=== PATIENT | male | born 1945 | race Caucasian/White ===

== ENCOUNTER 2020-06-21 02:20 | Inpatient (IN) | payer MEDICARE, OTHER ==
[~2020-06-21] VITALS: Ht 195.6 cm; Wt 100.0 kg
[2020-06-21] MEDS ORDERED: CefTRIAXone 2gm/D5W 50ml BAG 50 ML IV ONE (03:15)
[2020-06-21] MEDS ORDERED: normal saline 1000ML IV soln IV ONE (03:15)
[2020-06-21 03:24] LABS: BASOPHILS % (AUTO) 0.1 % (0-1); EOSINOPHILS % (AUTO) 0 % (0-6); HEMATOCRIT 38.5 % (42.0-52.0); HEMOGLOBIN 13.1 g/dl (14.0-17.9); LYMPHOCYTES # (AUTO) 0.7 X10'3 (1.1-4.8); LYMPHOCYTES % (AUTO) 4.4 % (21-51); MEAN CORPUSCULAR HEMOGLOBIN 29.9 PG (27.0-31.0); MEAN CORPUSCULAR VOLUME 87.9 FL (78-98); MEAN PLATELET VOLUME 10.5 FL (7.4-10.4); MONOCYTES % (AUTO) 11.6 % (2-12); NEUTROPHILS # (AUTO) 14.2 X10'3 (1.8-7.7); NEUTROPHILS % (AUTO) 83.9 % (42-75); PLATELET COUNT 189 X10'3 (140-440); RED BLOOD COUNT 4.38 X10'6 (4.70-6.10); RED CELL DISTRIBUTION WIDTH 13.6 % (11.5-14.5); WHITE BLOOD COUNT 16.9 X10'3 (4.5-11.0)
[2020-06-21] MEDS ORDERED: acetaminophen 325mg tablet PO ONE (03:25)
[2020-06-21 03:34] LABS: ALANINE AMINOTRANSFERASE 22 U/L (12-78); ALBUMIN 2.4 G/DL (3.4-5.0); ALBUMIN/GLOBULIN RATIO 0.5 (1.1-1.5); ALKALINE PHOSPHATASE 54 IU/L (46-116); ANION GAP 12 (8-16); ASPARTATE AMINO TRANSFERASE 28 U/L (10-37); BILIRUBIN,TOTAL 1.6 MG/DL (0.1-1.0); BLOOD UREA NITROGEN 31 MG/DL (7-18); BUN/CREATININE RATIO 17.6 (5.4-32.0); CHLORIDE 95 MMOL/L (99-107); CREATININE 1.76 MG/DL (0.60-1.10); GLUCOSE 232 MG/DL (70-104); MAGNESIUM 2.1 MG/DL (1.5-2.4); POTASSIUM 3.6 MMOL/L (3.5-5.1); SODIUM 136 MMOL/L (135-145); TOTAL CARBON DIOXIDE 29.3 MMOL/L (24-32); TOTAL PROTEIN 6.8 G/DL (6.4-8.2); eGFR 38 ML/MIN
[2020-06-21] MEDS ORDERED: bacitracin 15gm ointment TP ONE (04:20)
[2020-06-21] MEDS ORDERED: TETanus/Pertussis (Acell)/Diphther VAC/PF (Tdap-Adult) 0.5ml syringe IMVAC ONE (04:20)
[2020-06-21 04:34] LABS: LACTATE DEHYDROGENASE 194 U/L (85-227)
[2020-06-21] MEDS ORDERED: potassium Cl 40MEQ/1/2NS 520ml 520 ML IV PRN ×2 (04:35)
[2020-06-21] MEDS ORDERED: MESSAGE TO PHARMACY PO ONE (04:35)
[2020-06-21] MEDS ORDERED: magnesium 2GM in 50ml NS 50 ML IV PRN (04:35)
[2020-06-21] MEDS ORDERED: ondansetron/PF 4mg/2ml inj IV PRN (04:35)
[2020-06-21] MEDS ORDERED: glucagon, human recombinant 1mg kit SUBCUT PRN (04:35)
[2020-06-21] MEDS ORDERED: dextrose 50%-water 50ml dispensing syringe IV PRN ×2 (04:35)
[2020-06-21] MEDS ORDERED: dextrose ORAL solution 15 GM/59 ML bottle PO PRN ×2 (04:35)
[2020-06-21] MEDS ORDERED: potassium Cl 20 mEq SR tablet PO PRN (04:35)
[2020-06-21] MEDS ORDERED: acetaminophen 325mg tablet PO PRN (04:35)
[2020-06-21] MEDS ORDERED: magnesium Cl slow-release 64mg tablet PO PRN (04:35)
[2020-06-21] MEDS ORDERED: magnesium 4gm in 100ml NS 100 ML IV PRN (04:35)
[2020-06-21] MEDS ORDERED: magnesium hydroxide 30ml (MOM) UD suspension PO PRN (04:35)
[2020-06-21] MEDS ORDERED: mag hydrox/Alum hydrox/simeth 30ml oral suspension PO PRN (04:35)
--- NOTE | 2020-06-21 04:49 | NUR ---
YASMNAY ESPINOZA AWARE OF PT TEMP OF 102.5, 1 HR POST TYLENOL ADMIN. NO NEW ORDERS
[2020-06-21 04:53] LABS: HEMOGLOBIN A1C 7.9 % (4.5-6.2)
[2020-06-21 05:10] LABS: GLUCOSE, URINE 250 mg/dl (Neg); KETONES,URINE 15 mg/dl (Neg); LEUKOCYTE ESTERASE ,URINE NEGATIVE (Neg); NITRITES, URINE NEGATIVE (Neg); OCCULT BLOOD,URINE NEGATIVE (Neg); PH,URINE 6.5 (4.8-8.0); PROTEIN,URINE 100 mg/dl (Neg); UROBILINOGEN,URINE 0.2 E.U/dL (0.2-1.0)
[2020-06-21 05:36] LABS: CLARITY,URINE SLIGHTLY CLOUDY (Clear); COLOR,URINE DARK YELLOW (Yellow); UA COLLECTION TYPE STRAIGHT CATH
[2020-06-21 05:37] LABS: MUCUS STRANDS FEW /LPF (Neg); RBC,URINE 0-2 /HPF (0-2); SQUAMOUS EPITHELIAL CELL,UR FEW /LPF (FEW); TRANSITIONAL EPI CELLS,URINE MODERATE /HPF; WBC,URINE 0-4 /HPF (0-4)
[2020-06-21 05:38] LABS: BACTERIA,URINE FEW /HPF (Neg); WBC CLUMPS,URINE MODERATE /HPF (NEGATIVE)
[2020-06-21] MEDS: normal saline 1000ml 1,000 ML IV SCH ×3 (05:58→18:49)
[2020-06-21] MEDS: vancomycin/NS 1 GM ADD-VANTAGE 250 ML IV SCH (05:58)
[2020-06-21 06:20] LABS: PLATELET ESTIMATE NORMAL; TOTAL CELLS COUNTED 100
[2020-06-21 06:23] LABS: TOXIC GRANULATION 1+
--- NOTE | 2020-06-21 06:59 | NUR ---
Pt currently resting with eyes closed, effortless respirations observed.
[2020-06-21] MEDS: K and/or MAG REPLACEMENT MC SCH ×2 (07:18→20:00)
[2020-06-21] MEDS: insulin Lispro (HumaLOG) vial - multi-dose SQ SCH ×4 (09:26→21:46)
--- NOTE | 2020-06-21 10:50 | NUR ---
Wound care POC. Arrived at bedside for assessment. Pt alert and reports no pain at this time. Pt reports that the wound began due to rubbing on a brace he was wearing for his "weak ankle." He reports that he is diabetic and his sugars run in the 250s. Assessed the wound to his left posterior ankle. Foul odor present in the atmosphere of necrotic slough in the majority of the wound bed. Undermining noted from 11-2 of 3.1 cm. Wound measres 3.2x5x1.5. Unable to visualize underlying structures due to necrotic tissue in the wound bed. Culture obtained of undermined area. Cleansed with wound cleanser, rinsed with saline, applied therahoney to wound bed and packed with silver alginate, covered with large optifoam. Pt will likely need surgical consult for debridement of the wound. Will follow up when pt is transferred to the floor.
[2020-06-21] MEDS ORDERED: INSULIN (11:00)
--- NOTE | 2020-06-21 12:46 | NUR ---
Report attempted, JER Winston to call back.
--- NOTE | 2020-06-21 12:59 | NUR ---
received report from JER Castillo. awaiting patient arrival.
[2020-06-21 14:29] VITALS: BP 136/62
--- NOTE | 2020-06-21 17:29 | NUR ---
PAGER ID: [phone] MESSAGE: Emilie LUZ [id number]: he is refusing to DC the robbin pearl [phone]
[2020-06-21 18:00] VITALS: BP 134/54
--- NOTE | 2020-06-21 18:01 | NUR ---
pt insisting that he be covered with insulin before finishing his dinner tray. according to the protocol i gave the patient 5 units of humalog for a 244 blood glucose. will pass on to the NOC shift the need to cover his carb intake separately.
--- NOTE | 2020-06-21 18:15 | NUR ---
I have received report from JER Jenkins and had the opportunity to ask questions and assume patient care. Student, Hernando GRIFFIN is also assuming care of patient
--- NOTE | 2020-06-21 18:20 | NUR ---
Problems reprioritized. Patient report given, questions answered & plan of care reviewed with JER ALMEIDA.
--- NOTE | 2020-06-21 18:30 | NUR ---
Patient in room ORTHO 4015. I have received report from Magui and had the opportunity to ask questions and assume patient care.
[2020-06-21] MEDS: lactobacillus rhamnosus 10,000 MMU CELLS/CAPSULE PO SCH (19:39)
[2020-06-21] MEDS: heparin, porcine 5000 units/ml vial SQ SCH (19:42)
[2020-06-21] MEDS: insulin glargine (Lantus) pen - multi-dose SQ SCH (21:43)
[2020-06-21 22:00] VITALS: BP 133/60
[2020-06-21] MEDS: acetaminophen 325mg tablet PO PRN (22:21)
[2020-06-22] MEDS: vancomycin/NS 1 GM ADD-VANTAGE 250 ML IV SCH (04:54)
[2020-06-22] MEDS: normal saline 1000ml 1,000 ML IV SCH ×2 (04:58→20:36)
--- NOTE | 2020-06-22 06:17 | NUR ---
I agree with JER Leon new hires med pass, documention, assesment, and report. Report was given to JER Isaacs
--- NOTE | 2020-06-22 06:19 | NUR ---
Problems reprioritized. Patient report given, questions answered & plan of care reviewed with matthew. Edward RANDLE
--- NOTE | 2020-06-22 06:52 | NUR ---
Patient in room ORTHO 4012. I have received report from Efrain RANDLE and had the opportunity to ask questions and assume patient care.
[2020-06-22 06:56] LABS: BASOPHILS % (AUTO) 0.2 % (0-1); EOSINOPHILS % (AUTO) 0.1 % (0-6); HEMATOCRIT 36.3 % (42.0-52.0); HEMOGLOBIN 12.2 g/dl (14.0-17.9); LYMPHOCYTES # (AUTO) 0.6 X10'3 (1.1-4.8); MEAN CORPUSCULAR HGB CONC 33.6 g/dL (33.0-36.5); MEAN CORPUSCULAR VOLUME 89.2 FL (78-98); MEAN PLATELET VOLUME 10.6 FL (7.4-10.4); MONOCYTES # (AUTO) 1.1 X10'3 (0-0.9); MONOCYTES % (AUTO) 9.3 % (2-12); NEUTROPHILS # (AUTO) 10.4 X10'3 (1.8-7.7); NEUTROPHILS % (AUTO) 85.4 % (42-75); PLATELET COUNT 142 X10'3 (140-440); RED BLOOD COUNT 4.07 X10'6 (4.70-6.10); RED CELL DISTRIBUTION WIDTH 14.3 % (11.5-14.5); WHITE BLOOD COUNT 12.2 X10'3 (4.5-11.0)
[2020-06-22 06:58] VITALS: BP 135/58
[2020-06-22 07:10] LABS: ALANINE AMINOTRANSFERASE 24 U/L (12-78); ALBUMIN/GLOBULIN RATIO 0.5 (1.1-1.5); ALKALINE PHOSPHATASE 50 IU/L (46-116); ANION GAP 11 (8-16); ASPARTATE AMINO TRANSFERASE 32 U/L (10-37); BILIRUBIN,TOTAL 0.9 MG/DL (0.1-1.0); BLOOD UREA NITROGEN 25 MG/DL (7-18); BUN/CREATININE RATIO 19.8 (5.4-32.0); CALCIUM 7.5 MG/DL (8.5-10.1); CHLORIDE 96 MMOL/L (99-107); CHOL/HDL RATIO 7.5 (0.00-4.99); CHOLESTEROL 105 MG/DL (0-200); CREATININE 1.26 MG/DL (0.60-1.10); GLUCOSE 245 MG/DL (70-104); HDL CHOLESTEROL 14 MG/DL (35-60); LDL CHOLESTEROL 63 MG/DL (50-100); MAGNESIUM 2.4 MG/DL (1.5-2.4); POTASSIUM 3.5 MMOL/L (3.5-5.1); SODIUM 135 MMOL/L (135-145); TOTAL CARBON DIOXIDE 27.7 MMOL/L (24-32); TOTAL PROTEIN 6.3 G/DL (6.4-8.2); TRIGLYCERIDES 115 MG/DL (20-135); eGFR 56 ML/MIN
[2020-06-22 07:51] LABS: PLATELET ESTIMATE DECREASED; TOTAL CELLS COUNTED 100
[2020-06-22] MEDS: K and/or MAG REPLACEMENT MC SCH ×2 (08:00→20:00)
[2020-06-22] MEDS: insulin Lispro (HumaLOG) vial - multi-dose SQ SCH ×4 (09:09→21:15)
[2020-06-22] MEDS: CefTRIAXone/D5W-Rocephin 1gm 50 ML IV SCH (09:10)
[2020-06-22] MEDS: lactobacillus rhamnosus 10,000 MMU CELLS/CAPSULE PO SCH ×2 (09:10→19:15)
[2020-06-22] MEDS: heparin, porcine 5000 units/ml vial SQ SCH ×2 (09:11→19:14)
[2020-06-22 10:00] VITALS: BP 138/69
--- NOTE | 2020-06-22 14:31 | NUR ---
DM consult: Noted A1c 7.9. Pt admitted for worsening ALOC and UTI. Pt still A/Ox3. Pt would benefit from DM education this admit once more alert and oriented. Will continue to follow. Addendum: 06/22/20 at 1431 by Macy TANG INJECTION MOULDING MACHINE OPERATOR RD Amended: Links added. Addendum: 06/22/20 at [address] I have reviewed and agree with note by seo intern. Alexa Rothman RD
[2020-06-22] MEDS ORDERED: nitroGLYCERIN 0.4mg SUBLingual tab SL PRN (15:35)
[2020-06-22] MEDS ORDERED: aminophylline 250mg/10ml inj. IV PRN (15:35)
[2020-06-22] MEDS ORDERED: regadenoson 0.4mg/5ml syringe IV PRN (15:35)
[2020-06-22] MEDS ORDERED: metoprolol tartrate 1mg/ml inj IV PRN (15:35)
[2020-06-22] MEDS ORDERED: iohexol 350 MG/ML 50ML vial IV ONE (16:28)
[2020-06-22] MEDS ORDERED: iohexol 350MG/ML 100ml bottle IV ONE (16:28)
--- NOTE | 2020-06-22 18:34 | NUR ---
Problems reprioritized. Patient report given, questions answered & plan of care reviewed with Efrain RANDLE.
[2020-06-22] MEDS: Dakins solution (1/4 strength) 473ml solution TP SCH (20:00)
[2020-06-22] MEDS: insulin glargine (Lantus) pen - multi-dose SQ SCH (21:11)
--- NOTE | 2020-06-22 21:30 | NUR ---
Dr Salguero called to inform me that he tried to page the hospitalist that was on during the day, regarding the CTA results. I told him that we were paging the night time hospitalist. 2014: Night time hospitalist called back and told me that he would call Dr Arriaga, who had consulted earlier in the day. 2044: Received a call that hospitalist did not get a hold of the surgeon and that he had called the crop nutrition scientist orthopedist Dr Velasquez. 2129: Dr Velasquez came up and examined patient, we are awaiting patient to go in for surgery.
[2020-06-22] MEDS ORDERED: fentaNYL/PF 50MCG/1 ML 2ML syringe IV PRN ×2 (21:45)
[2020-06-22] MEDS ORDERED: morphine 2 MG/ML inj. syringe IV PRN (21:45)
[2020-06-22] MEDS ORDERED: ringers solution, lacted 1,000 ML IV SCH (21:45)
[2020-06-22] MEDS ORDERED: morphine 4 MG/ML inj SYRINge IV PRN (21:45)
[2020-06-22] MEDS ORDERED: labetalol 20mg/4ml (5mg/ml) syringe IV PRN (21:45)
[2020-06-22] MEDS ORDERED: hydrALAZINE 20mg/ml inj. IV PRN (21:45)
[2020-06-22] MEDS ORDERED: ondansetron/PF 4mg/2ml inj IV PRN (21:45)
[2020-06-22] MEDS: acetaminophen 325mg tablet PO PRN (21:58)
[2020-06-22 22:00] VITALS: BP 134/63
[2020-06-22] MEDS ORDERED: midazolam 1 mg/ML 2ml injection ONE (22:07)
[2020-06-22] MEDS ORDERED: fentaNYL/PF 50MCG/1 ML 2ML syringe ONE ×2 (22:07→23:18)
[2020-06-22] MEDS ORDERED: etomidate 2mg/ml inj. ONE (22:08)
[2020-06-22 22:26] LABS: PARTIAL THROMBOPLASTIN TIME 35 SECONDS (22-32)
--- NOTE | 2020-06-22 22:30 | NUR ---
Patient was taken down to OR, report was given to JER Zavaleta prior to transfer
[2020-06-22] MEDS ORDERED: metoclopramide 5 mg/ml inj ONE (22:44)
[2020-06-22] MEDS ORDERED: ondansetron/PF 4mg/2ml inj ONE (22:45)
[2020-06-22 23:35] VITALS: BP 135/79
--- NOTE | 2020-06-22 23:35 | NUR ---
Received from OR via BED, accompanied by Anesthesiologist TASHI and report given by Anesthesiolgist. PT DROWSY, OXYGENATING IN LOW TO MID 90'S ON 10 LPM O2 VIA MASK, NO RESP DISTRESS NOTED. WILL ENCOURAGE PULMONARY TOILET WHEN PT AWAKE ENOUGH. Mk CAZARES HAS WOUND VAC DSG ON, 125 CONT. GOOD SEAL. COVERED WITH ECTOR BANDAGE. PT IS CLAMMY, TEMP 37. ACCU CHECK 160. SCD ON R LEG, FC PATENT. VSS, ST. WILL CONTINUE TO MONITOR. PT OPENS EYES BUT DOESNT FOLLOW COMMANDS AND KEEPS PULLING OFF ALL MONITORS AND O2.
[2020-06-22 23:45] VITALS: BP 123/71
[2020-06-22 23:55] VITALS: BP 122/69
[2020-06-23] VITALS (18 sets, daily range): BP systolic 103–133; BP diastolic 57–71
--- NOTE | 2020-06-23 00:49 | NUR ---
CALLED DR AKINS RE: RAPID AFIB 120-140'S. HE GAVE AN ORDER TO ADMINISTER LABETALOL 5 MG X 1 IV.
--- NOTE | 2020-06-23 01:30 | NUR ---
PT CONTINUES IN RAPID AFIB WITH VARIABLE RATE, WHICH HE HAD BOUTS OF YESTERDAY WELL. BP IS STABLE. FLUID BOLUS GIVEN, 500 ML NS. SKIN P/W/D. NO LONGER CLAMMY. PT STATES HE FEELS BETTER WHEN AWAKENED. ONLY C/O PAIN WHEN HIS STUMP IS MOVED. MORPHINE 4 MG IVP GIVEN PRIOR TO TRANSFER BACK TO ORTHO. SIPS OF WATER TOLERATED. TRANSFERRED BACK TO ORTHO IN STABLE CONDITION
--- NOTE | 2020-06-23 01:52 | NUR ---
Received report from JER Zavaleta. Patient is in rapid a Fib once we transferred to room I paged hospitalist and got an order for Digoxin and Dilaudid for pain. Patient is resting comfortably, VSS within normal limits. Will continue to monitor
[2020-06-23] MEDS ORDERED: digoxin 250mcg/ml 2ml ampule IV ONE (02:00)
[2020-06-23] MEDS ORDERED: HYDROmorphone inj. 0.5 MG/0.5 ML DISP.SYRIN IV PRN (02:00)
[2020-06-23] MEDS ORDERED: HYDROmorphone 1 mg/ml syringe IV PRN (02:00)
--- NOTE | 2020-06-23 02:30 | NUR ---
Patient refuses to have AKA elevated
--- NOTE | 2020-06-23 03:45 | NUR ---
I called [facility] to alert them about patient being placed on wound vac post surgery and they said it was already called in. No reference number was given to me.
[2020-06-23] MEDS: normal saline 1000ml 1,000 ML IV SCH ×2 (05:18→16:51)
[2020-06-23] MEDS: vancomycin/NS 1 GM ADD-VANTAGE 250 ML IV SCH (05:45)
--- NOTE | 2020-06-23 06:22 | NUR ---
I agree with new hire JER Leonfourdrinier wire weaver, and report given to JER Doan & SkylerRN
--- NOTE | 2020-06-23 06:26 | NUR ---
post op vital signs done at 0600, machine entered standby while charting - when brought out of standby machine had been cleared. Patient was monitored throughout the morning and vital signs are WNL excluding heart rate. Edward RANDLE
--- NOTE | 2020-06-23 06:28 | NUR ---
Problems reprioritized. Patient report given, questions answered & plan of care reviewed with Marv ARREDONDO. Edward Arredondo
[2020-06-23 06:34] LABS: BASOPHILS % (AUTO) 0.4 % (0-1); EOSINOPHILS % (AUTO) 0.2 % (0-6); HEMOGLOBIN 11.7 g/dl (14.0-17.9); LYMPHOCYTES # (AUTO) 0.8 X10'3 (1.1-4.8); LYMPHOCYTES % (AUTO) 9.6 % (21-51); MEAN CORPUSCULAR HGB CONC 33.4 g/dL (33.0-36.5); MEAN CORPUSCULAR VOLUME 89.8 FL (78-98); MEAN PLATELET VOLUME 10.4 FL (7.4-10.4); MONOCYTES # (AUTO) 0.8 X10'3 (0-0.9); MONOCYTES % (AUTO) 9.9 % (2-12); NEUTROPHILS # (AUTO) 6.6 X10'3 (1.8-7.7); NEUTROPHILS % (AUTO) 79.9 % (42-75); PLATELET COUNT 147 X10'3 (140-440); WHITE BLOOD COUNT 8.2 X10'3 (4.5-11.0)
--- NOTE | 2020-06-23 06:40 | NUR ---
Patient in room ORTHO 4015. I have received report from Efrain RANDLE and Edwrad RANDLE and had the opportunity to ask questions and assume patient care.
[2020-06-23 06:56] LABS: ALANINE AMINOTRANSFERASE 37 U/L (12-78); ALBUMIN 1.7 G/DL (3.4-5.0); ALBUMIN/GLOBULIN RATIO 0.4 (1.1-1.5); ALKALINE PHOSPHATASE 48 IU/L (46-116); ANION GAP 10 (8-16); ASPARTATE AMINO TRANSFERASE 55 U/L (10-37); BILIRUBIN,TOTAL 0.9 MG/DL (0.1-1.0); BLOOD UREA NITROGEN 23 MG/DL (7-18); BUN/CREATININE RATIO 18.7 (5.4-32.0); CALCIUM 6.8 MG/DL (8.5-10.1); CHLORIDE 97 MMOL/L (99-107); CREATININE 1.23 MG/DL (0.60-1.10); GLUCOSE 233 MG/DL (70-104); MAGNESIUM 2.3 MG/DL (1.5-2.4); POTASSIUM 3.4 MMOL/L (3.5-5.1); SODIUM 135 MMOL/L (135-145); TOTAL CARBON DIOXIDE 28.4 MMOL/L (24-32); TOTAL PROTEIN 5.8 G/DL (6.4-8.2); eGFR 58 ML/MIN
[2020-06-23] MEDS: Dakins solution (1/4 strength) 473ml solution TP SCH ×2 (08:00→20:00)
[2020-06-23] MEDS: heparin, porcine 5000 units/ml vial SQ SCH ×2 (08:25→20:37)
[2020-06-23] MEDS: lactobacillus rhamnosus 10,000 MMU CELLS/CAPSULE PO SCH ×2 (08:25→20:37)
[2020-06-23] MEDS: CefTRIAXone/D5W-Rocephin 1gm 50 ML IV SCH (08:27)
[2020-06-23] MEDS: potassium Cl 20 mEq SR tablet PO PRN ×3 (08:28→17:35)
[2020-06-23] MEDS: insulin Lispro (HumaLOG) vial - multi-dose SQ SCH ×3 (08:35→19:54)
[2020-06-23] MEDS: K and/or MAG REPLACEMENT MC SCH ×2 (08:50→20:00)
--- NOTE | 2020-06-23 10:21 | NUR ---
no wound care provided, no longer needed, pt had AKA done Addendum: 06/23/20 at 1021 by Jase Bai RN Amended: Links added.
--- NOTE | 2020-06-23 14:00 | NUR ---
PAGER ID: [phone] MESSAGE: Skyler [phone] [place] [id number] Blood cultures from 06/21 show gram+ rods resembling diptheroids lab states possible contaminated sample
[2020-06-23] MEDS ORDERED: cefepime 1GM/NS ADD-VANTAGE 100 ML IV SCH (16:00)
--- NOTE | 2020-06-23 16:07 | NUR ---
sent message to pharmacy, "please send up the new order of cefepime for my patient in [phone] [facility]. Thanks"
[2020-06-23] MEDS: cefepime 1GM in D5W 50mL 50 ML IV SCH (16:51)
[2020-06-23] MEDS ORDERED: vancomycin/NS 1 GM ADD-VANTAGE 250 ML IV SCH (17:00)
--- NOTE | 2020-06-23 18:10 | NUR ---
Problems reprioritized. Patient report given, questions answered & plan of care reviewed with Sunitha RANDLE.
--- NOTE | 2020-06-23 18:45 | NUR ---
Patient in room ORTHO 4015. I have received report from ROSEMARY RANDLE & STUDENT and had the opportunity to ask questions and assume patient care. Addendum: 06/23/20 at 1846 by Sunitha Shetty RN Amended: Links added.
[2020-06-23] MEDS: insulin glargine (Lantus) pen - multi-dose SQ SCH (22:50)
[2020-06-23] MEDS: acetaminophen 325mg tablet PO PRN (22:52)
[2020-06-24] VITALS (20 sets, daily range): BP systolic 104–140; BP diastolic 58–80
[2020-06-24] MEDS: cefepime 1GM in D5W 50mL 50 ML IV SCH ×4 (00:45→23:34)
[2020-06-24] MEDS: normal saline 1000ml 1,000 ML IV SCH ×3 (03:34→23:34)
[2020-06-24] MEDS ORDERED: ringers solution, lacted 1,000 ML IV ONE (05:30)
--- NOTE | 2020-06-24 05:50 | NUR ---
pt lr hung at 50/hr. pt awoke took pepcid po with swallow of water then complete bed bath done along with prep for surgery done on the pt.
[2020-06-24] MEDS ORDERED: famotidine 20mg tablet PO ONE (06:00)
--- NOTE | 2020-06-24 06:26 | NUR ---
Problems reprioritized. Patient report given, questions answered & plan of care reviewed with JOHNSON RANDLE. Addendum: 06/24/20 at 0626 by Sunitha Shetty RN Amended: Links added.
[2020-06-24 06:50] LABS: BASOPHILS % (AUTO) 0.2 % (0-1); EOSINOPHILS # (AUTO) 0.1 X10'3 (0-0.9); EOSINOPHILS % (AUTO) 0.7 % (0-6); HEMATOCRIT 32.8 % (42.0-52.0); LYMPHOCYTES # (AUTO) 0.9 X10'3 (1.1-4.8); LYMPHOCYTES % (AUTO) 8.2 % (21-51); MEAN CORPUSCULAR HEMOGLOBIN 29.8 PG (27.0-31.0); MEAN CORPUSCULAR HGB CONC 33.7 g/dL (33.0-36.5); MEAN CORPUSCULAR VOLUME 88.3 FL (78-98); MEAN PLATELET VOLUME 10.5 FL (7.4-10.4); MONOCYTES % (AUTO) 9.3 % (2-12); NEUTROPHILS # (AUTO) 9.2 X10'3 (1.8-7.7); NEUTROPHILS % (AUTO) 81.6 % (42-75); PLATELET COUNT 167 X10'3 (140-440); RED BLOOD COUNT 3.71 X10'6 (4.70-6.10); RED CELL DISTRIBUTION WIDTH 14.2 % (11.5-14.5); WHITE BLOOD COUNT 11.2 X10'3 (4.5-11.0)
[2020-06-24] MEDS ORDERED: BUPIVAcaine/PF 2.5 mg/ml (0.25%) 30ml vial ONE (07:21)
[2020-06-24 07:25] LABS: ALANINE AMINOTRANSFERASE 42 U/L (12-78); ALBUMIN 1.5 G/DL (3.4-5.0); ALBUMIN/GLOBULIN RATIO 0.4 (1.1-1.5); ALKALINE PHOSPHATASE 52 IU/L (46-116); ANION GAP 8 (8-16); ASPARTATE AMINO TRANSFERASE 59 U/L (10-37); BILIRUBIN,TOTAL 0.7 MG/DL (0.1-1.0); BLOOD UREA NITROGEN 19 MG/DL (7-18); BUN/CREATININE RATIO 17.3 (5.4-32.0); CALCIUM 6.9 MG/DL (8.5-10.1); CHLORIDE 99 MMOL/L (99-107); GLUCOSE 186 MG/DL (70-104); MAGNESIUM 2.3 MG/DL (1.5-2.4); POTASSIUM 3.2 MMOL/L (3.5-5.1); SODIUM 135 MMOL/L (135-145); TOTAL CARBON DIOXIDE 28.5 MMOL/L (24-32); TOTAL PROTEIN 5.6 G/DL (6.4-8.2); eGFR 65 ML/MIN
[2020-06-24] MEDS ORDERED: fentaNYL/PF 50MCG/1 ML 2ML syringe ONE (07:52)
[2020-06-24] MEDS ORDERED: midazolam 1 mg/ML 2ml injection ONE (07:53)
[2020-06-24] MEDS ORDERED: etomidate 2mg/ml inj. ONE (07:54)
[2020-06-24] MEDS: Dakins solution (1/4 strength) 473ml solution TP SCH ×2 (08:00→19:31)
[2020-06-24] MEDS: heparin, porcine 5000 units/ml vial SQ SCH ×2 (08:00→19:29)
[2020-06-24] MEDS: K and/or MAG REPLACEMENT MC SCH ×2 (08:00→19:08)
[2020-06-24] MEDS ORDERED: sevoflurane 250ml liquid IH ONE (08:00)
[2020-06-24] MEDS ORDERED: fentaNYL/PF 50MCG/1 ML 2ML syringe IV PRN ×2 (08:25)
[2020-06-24] MEDS ORDERED: labetalol 20mg/4ml (5mg/ml) syringe IV PRN (08:25)
[2020-06-24] MEDS ORDERED: ringers solution, lacted 1,000 ML IV SCH (08:25)
[2020-06-24] MEDS ORDERED: morphine 4 MG/ML inj SYRINge IV PRN (08:25)
[2020-06-24] MEDS ORDERED: hydrALAZINE 20mg/ml inj. IV PRN (08:25)
[2020-06-24] MEDS ORDERED: morphine 2 MG/ML inj. syringe IV PRN (08:25)
[2020-06-24] MEDS ORDERED: ondansetron/PF 4mg/2ml inj IV PRN (08:25)
--- NOTE | 2020-06-24 09:05 | NUR ---
Received from OR via BED, accompanied by Anesthesiologist TASHI and report given by Anesthesiolgist. PT DROWSY, OXYGENATING WELL ON 10 LPM O2 VIA MASK, NO RESP DISTRESS NOTED. PT DENIES NAUSEA OR PAIN AT THIS TIME. ECTOR WRAP TO LLE STUMP WITH HEMOVAC DRAIN IN. SCD ON OTHER LEG, FC PATENT. VSS.
--- NOTE | 2020-06-24 10:20 | NUR ---
Report called to receiving nurse. Transferred via BED Belongings IN PT ROOM. VSS. PAIN IN INCISION AREA ADEQUATELY RELIEVED BY MORPHINE 4 MG. TOLERATING PO FLUIDS WELL. POST OP ACCUCHECK 201, NO INSULIN ORDERS GIVEN BY ANESTHESIA. WOUND VAC SENT BACK TO FLOOR W/PT, FLOOR RN TO CALL [facility] FOR COILED TUBING SUPERVISOR. PT TRANSFEERED BACK TO FLOOR IN STABLE CONDITION. Special Issues communicated to receiving nurse.
[2020-06-24 10:22] LABS: PLATELET ESTIMATE NORMAL; TOTAL CELLS COUNTED 100
--- NOTE | 2020-06-24 10:30 | NUR ---
called [facility] at [phone] to d/c charge for pt reference number [id number]
--- NOTE | 2020-06-24 11:00 | NUR ---
unable to take wound pic today b/c pt had surgery on wound, today is pod zero, continue to monitor
[2020-06-24] MEDS: lactobacillus rhamnosus 10,000 MMU CELLS/CAPSULE PO SCH ×2 (11:09→19:30)
[2020-06-24] MEDS: insulin Lispro (HumaLOG) vial - multi-dose SQ SCH (13:53)
[2020-06-24] MEDS ORDERED: chlorproMAZINE 25mg tablet PO PRN (15:00)
[2020-06-24] MEDS ORDERED: magnesium 4gm in 100ml NS 100 ML IV PRN (16:20)
[2020-06-24] MEDS ORDERED: magnesium Cl slow-release 64mg tablet PO PRN (16:20)
[2020-06-24] MEDS ORDERED: potassium Cl 20 mEq SR tablet PO PRN ×2 (16:20)
[2020-06-24] MEDS ORDERED: potassium Cl 40MEQ/1/2NS 520ml 520 ML IV PRN (16:20)
[2020-06-24] MEDS ORDERED: VANCOMYCIN LEVEL IV ONE (16:30)
--- NOTE | 2020-06-24 18:45 | NUR ---
Problems reprioritized. Patient report given, questions answered & plan of care reviewed with JER SANDERS.
--- NOTE | 2020-06-24 19:34 | NUR ---
PTS DINNER CAME UP AT 1930 , BG IS 159 AT THIS TIME , WILL WAIT TIL 2099 BG CHECK FOR ADMIN INSULIN.
[2020-06-24] MEDS: insulin glargine (Lantus) pen - multi-dose SQ SCH (21:58)
--- NOTE | 2020-06-25 06:11 | NUR ---
report given to latoya Tobias.
--- NOTE | 2020-06-25 06:32 | NUR ---
Received report from Pradip RANDLE Addendum: 06/25/20 at 0633 by Micheline Bui RN Received report from Elsy RANDLE
[2020-06-25 07:14] VITALS: BP 121/61
[2020-06-25 07:16] LABS: BASOPHILS % (AUTO) 0.2 % (0-1); EOSINOPHILS # (AUTO) 0.1 X10'3 (0-0.9); EOSINOPHILS % (AUTO) 0.6 % (0-6); HEMOGLOBIN 11.7 g/dl (14.0-17.9); LYMPHOCYTES # (AUTO) 0.7 X10'3 (1.1-4.8); LYMPHOCYTES % (AUTO) 5.3 % (21-51); MEAN CORPUSCULAR HEMOGLOBIN 29.9 PG (27.0-31.0); MEAN CORPUSCULAR HGB CONC 33.6 g/dL (33.0-36.5); MEAN CORPUSCULAR VOLUME 89.1 FL (78-98); MEAN PLATELET VOLUME 10.6 FL (7.4-10.4); MONOCYTES % (AUTO) 7.8 % (2-12); NEUTROPHILS # (AUTO) 10.9 X10'3 (1.8-7.7); NEUTROPHILS % (AUTO) 86.1 % (42-75); PLATELET COUNT 180 X10'3 (140-440); RED BLOOD COUNT 3.93 X10'6 (4.70-6.10); RED CELL DISTRIBUTION WIDTH 14.4 % (11.5-14.5); WHITE BLOOD COUNT 12.7 X10'3 (4.5-11.0)
[2020-06-25] MEDS: Dakins solution (1/4 strength) 473ml solution TP SCH (07:41)
[2020-06-25 07:45] LABS: ALANINE AMINOTRANSFERASE 46 U/L (12-78); ALBUMIN 1.3 G/DL (3.4-5.0); ALBUMIN/GLOBULIN RATIO 0.3 (1.1-1.5); ALKALINE PHOSPHATASE 52 IU/L (46-116); ANION GAP 9 (8-16); ASPARTATE AMINO TRANSFERASE 43 U/L (10-37); BILIRUBIN,TOTAL 0.6 MG/DL (0.1-1.0); BLOOD UREA NITROGEN 19 MG/DL (7-18); BUN/CREATININE RATIO 20.7 (5.4-32.0); CALCIUM 6.8 MG/DL (8.5-10.1); CHLORIDE 101 MMOL/L (99-107); CREATININE 0.92 MG/DL (0.60-1.10); GLUCOSE 228 MG/DL (70-104); MAGNESIUM 2.2 MG/DL (1.5-2.4); POTASSIUM 3.9 MMOL/L (3.5-5.1); SODIUM 136 MMOL/L (135-145); TOTAL CARBON DIOXIDE 26.2 MMOL/L (24-32); TOTAL PROTEIN 5.2 G/DL (6.4-8.2); eGFR 80 ML/MIN
[2020-06-25] MEDS: lactobacillus rhamnosus 10,000 MMU CELLS/CAPSULE PO SCH (07:45)
[2020-06-25] MEDS: cefepime 1GM in D5W 50mL 50 ML IV SCH (07:45)
[2020-06-25] MEDS: heparin, porcine 5000 units/ml vial SQ SCH (07:46)
[2020-06-25] MEDS: insulin Lispro (HumaLOG) vial - multi-dose SQ SCH ×2 (08:57→12:43)
--- NOTE | 2020-06-25 11:45 | NUR ---
Patient in room ORTHO 4015. I have received report from daren RANDLE and had the opportunity to ask questions and assume patient care.
--- NOTE | 2020-06-25 14:07 | NUR ---
removed jacinto catheter per md and primary nurse orders
--- NOTE | 2020-06-25 14:49 | NUR ---
PATIENT WAS DISCHARGED IV AND TELE WAS REMOVED FROM PATENT. ALONG WITH HEMOVAC AND COULTER. PATIENT WAS ALERT AND ORIENTED AT TIME OF DISCHARGE. AT BEDSIDE
== END 2020-06-25 14:10 | DRG 853 ==
LOC: ER 02:20 → ED HOLD 04:31 → ORTHO 4S 13:55
PROVIDERS: ADMIT Family Medicine; ATTEND Family Medicine
PROC: B4201ZZ Computerized Tomography (CT Scan) of Abdominal Aorta using Low Osmolar Contrast (ICD-10-PCS; 2020-06-22)
PROC: B4241ZZ Computerized Tomography (CT Scan) of Superior Mesenteric Artery using Low Osmolar Contrast (ICD-10-PCS; 2020-06-22)
PROC: B4281ZZ Computerized Tomography (CT Scan) of Bilateral Renal Arteries using Low Osmolar Contrast (ICD-10-PCS; 2020-06-22)
PROC: B42H1ZZ Computerized Tomography (CT Scan) of Bilateral Lower Extremity Arteries using Low Osmolar Contrast (ICD-10-PCS; 2020-06-22)
PROC: B4211ZZ Computerized Tomography (CT Scan) of Celiac Artery using Low Osmolar Contrast (ICD-10-PCS; 2020-06-22)
PROC: B42H1ZZ Computerized Tomography (CT Scan) of Bilateral Lower Extremity Arteries using Low Osmolar Contrast (ICD-10-PCS; 2020-06-22)
PROC: 0Y6D0Z1 Detachment at Left Upper Leg, High, Open Approach (ICD-10-PCS; principal; 2020-06-22 22:36)
PROC: 0HQLXZZ Repair Left Lower Leg Skin, External Approach (ICD-10-PCS; 2020-06-24)
DX: A41.9 Sepsis, unspecified organism (principal); M72.6 Necrotizing fasciitis; G93.41 Metabolic encephalopathy; L03.116 Cellulitis of left lower limb; E87.2 Acidosis; L97.429 Non-pressure chronic ulcer of left heel and midfoot with unspecified severity; N17.9 Acute kidney failure, unspecified; N39.0 Urinary tract infection, site not specified; E11.621 Type 2 diabetes mellitus with foot ulcer; B95.2 Enterococcus as the cause of diseases classified elsewhere; E11.42 Type 2 diabetes mellitus with diabetic polyneuropathy; B95.61 Methicillin susceptible Staphylococcus aureus infection as the cause of diseases classified elsewhere; E11.51 Type 2 diabetes mellitus with diabetic peripheral angiopathy without gangrene; E11.22 Type 2 diabetes mellitus with diabetic chronic kidney disease; E11.21 Type 2 diabetes mellitus with diabetic nephropathy; N18.9 Chronic kidney disease, unspecified; E11.65 Type 2 diabetes mellitus with hyperglycemia; E86.0 Dehydration; E87.6 Hypokalemia; I48.91 Unspecified atrial fibrillation; I87.2 Venous insufficiency (chronic) (peripheral); Z20.822 Contact with and (suspected) exposure to COVID-19; R06.6 Hiccough; Z79.4 Long term (current) use of insulin
CPT/HCPCS: 36415; 70450; 71045; 73718; 75635; 80053; 80061; 81001; 82948; 83036; 83605; 83615; 83735; 84145; 85007; 85025; 85610; 85730; 86140; 86885; 86900; 86901; 87040; 87070; 87075; 87076; 87077; 87081; 87088; 87185; 87186; 87635; 90715; 93005; 93922; 93925; 96365; 97110; 97116; 97161; 97162; 97530; 99285; A4618; A6222; A6446; A6449; A6550; A7000; G0378; J0692; J0696; J1160; J1170; J1644; J1815; J2250; J2270; J2405; J2765; J3010; J3370; J3490; J7030; J7120; Q0161; Q9967